=== PATIENT | male | born 1985 | race American Indian/Alaskan Native ===

== ENCOUNTER 2017-02-05 06:26 | Day surgery (SDC) | payer MEDICAID ==
[2017-02-05] MEDS ORDERED: NACL 0.9% 1000 ML 1,000 ML ONE (07:16)
[2017-02-05] MEDS ORDERED: NACL BACTERIOSTATIC INFILTRATI ONE (07:25)
[2017-02-05] MEDS ORDERED: WATER FOR IRRIG STERILE IR ONE ×2 (07:37→08:28)
[2017-02-05] MEDS ORDERED: NACL 0.9% 1000 ML 1,000 ML IV SCH (08:00)
[2017-02-05] MEDS ORDERED: WATER FOR IRRIG STERILE ONE (08:54)
[2017-02-05] MEDS ORDERED: ANCEF/STERILE WATER 2 GM/20 ML 2 GM/20 ML SYRINGE IV NR (09:00)
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
--- NOTE | 2017-02-05 09:55 | Anesthesia Day of Surgery ---
Anesthesia Day of Surgery - Day of Surgery Patient Examined: Yes Patient H&P Reviewed: Yes Patient is NPO: Yes
[2017-02-05] MEDS ORDERED: TRIPLE ANTIBIOTIC TP ONE (11:49)
--- NOTE | 2017-02-05 12:18 | History and Physical Report ---
History of Present Illness Date of examination: 02/05/17 Date of admission: 02/05/2017 Chief complaint: Feeding difficulty, gastrostomy tube malfunction/malpositioned gastrostomy tube History of present illness: Patient is a 31-year-old male with history of encephalopathy/traumatic brain injury who has a gastrostomy tube for enteral feeding and administration of medications. Apparently the gastrostomy tube malfunction and patient was taken to the emergency room. At the emergency room, a gastrostomy tube was inserted however it was uncertain whether this was properly placed and therefore the gastrostomy tube has not been used. Patient was brought to the office for evaluation. Per patient's mother she is not sure having dealt with multiple gastrostomy tubes that this was properly positioned and would like a new gastrostomy tube to be properly placed. Patient himself is nonverbal and unable to communicate. He appeared to be in some moderate distress at the time of evaluation. Past History Past Medical History: other (Traumatic brain injury status post gastrostomy tube placement.) Past Surgical History: Other (status post gastrostomy tube placement.) Social history: other (patient has a history of traumatic brain injury and is unable to provide history. Apparently lives at home with her mother and caregiver) Medications and Allergies Allergies Allergy/AdvReac Type Severity Reaction Status Date / Time No Known Allergies Allergy Verified 02/05/17 07:29 Active Meds: Active Medications Sodium Chloride (Nacl 0.9% 1000 Ml) 1,000 mls @ 50 mls/hr IV DIRECT CHRIS Last Admin: 02/05/17 08:09 Dose: 50 mls/hr Cefazolin Sodium (Ancef/Sterile Water 2 Gm/20 Ml) 2 gm in 20 mls @ 80 mls/hr IV PREOP NR PRN Reason: Protocol Stop: 02/05/17 23:59 Review of Systems ROS unobtainable: due to mental status Exam - Constitutional Vitals: Temp Pulse Resp BP Pulse Ox 99.1 F 122 H 14 135/96 98 02/05/17 07:45 02/05/17 07:45 02/05/17 07:45 02/05/17 07:45 02/05/17 07:45 General appearance: Present: no acute distress - EENT Eyes: Present: PERRL ENT: other (unable to evaluate further. Oral mucosa is dry) - Neck Neck: Present: supple - Respiratory Respiratory effort: normal Respiratory: left: CTA - Cardiovascular Rhythm: regular Heart Sounds: Present: S1 & S2. Absent: systolic murmur, diastolic murmur, rub Peripheral Pulses: within normal limits - Abdominal General gastrointestinal: Present: soft, other (gastrostomy tube in place. There is marked skin changes on the gastrostomy tube with ulceration and devitalization of surrounding skin and drainage of gastric contents.) Male genitourinary: Present: deferred - Rectal Rectal Exam: deferred - Integumentary Integumentary: Present: clear Assessment and Plan Feeding difficulty Malnutrition Oropharyngeal dysphagia Also mental status. Peristomal redness/skin changes Plan: Because it is uncertain regarding the position of the gastrostomy tube an upper endoscopy will be done to properly place a new gastrostomy tube for enteral feeding and administration of medications.
--- NOTE | 2017-02-05 12:28 | Operative Report ---
Operative Report Operative Report: Operative Report: Date of procedure: 02/05/2017 Procedure: Esophagogastroduodenoscopy with percutaneous endoscopic gastrostomy tube placement . Attending physician: Troy Villarreal MD Liquid Loader: Troy Villarreal MD Indication: Patient is an 31-year-old male who presented with a history of altered mental status poor oral intake and gastrostomy tube malfunction. Patient is moderately malnourished. An upper endoscopy is done to place a percutaneous endoscopic gastrostomy tube for enteral feeding and administration of medications. Consent: Informed consent was obtained after advising the patient's mother regarding nature of this procedure, its indications, potential benefits as well as possible complications including but not limited to bleeding perforation and adverse reaction to medication, infection as well as other cardiopulmonary complications. An informed written and verbal consent was then obtained after due opportunity was provided for questions and answers. Monitoring: Patient was monitored continuously with pulse oximetry and electrocardiographic recordings as well as blood pressure recordings. Vital signs remained stable throughout this procedure with no untoward events. Preoperative assessment: Patient was assessed immediately prior to this procedure for capacity to tolerate monitored anesthesia care and moderate sedation as well as general anesthesia. Patient's ASA classification is 3, Mallampati class is 2, Hyomental distance is 3. Instrument: [employer] video endoscope. 20 [place] percutaneous endoscopic gastrostomy tube kit Medications: Propofol given intravenously in divided doses. For details please refer to anesthesia records. Ancef 1 g given intravenously immediately prior to beginning of procedure 1% lidocaine for local infiltration of the skin. Description of procedure: Patient was placed in a supine position after achieving sedation, the endoscope was introduced into the esophagus under direct vision. It was then advanced beyond the esophagus into the stomach and then beyond the stomach into the duodenum and to the second portion of the duodenum. It was subsequently withdrawn with careful inspection of all mucosal surfaces with the following findings. Subsequently, a precise location for the placement of the percutaneous endoscopic gastrostomy tube was identified using old gastrostomy tube position. Following this, a 20 [place] percutaneous endoscopic gastrostomy tube was successfully placed using the Ponsky pull- through method. The following endoscopic findings were noted. Findings: Esophagus was normal. There was mild erythema in the gastric antrum. There was a gastric ulcer on the opposite side of the gastrostomy tube site. A 20 [place] percutaneous endoscopic gastrostomy tube was successfully placed. The duodenum was normal to the second portion. Impression: Gastric ulcer. Gastric antral erythema. Successful placement of a 20 [place] percutaneous endoscopic gastrostomy tube. Plan: The tube site is currently at 3 cm. It should be cleaned daily with Betadine and peroxide. Triple Antibiotic should be applied daily to the site with dry gauze dressing a for at least 2-3 weeks. The tube site should be carefully inspected daily for any redness or discharge. The tube should be flushed with 100 mL of water every 6 hours. The tube should also be flushed additionally after administration medications or after completing a feeding session. Tube may be used for enteral feeding after 6 hours. The tube however may be used immediately for administration of medications. If the tube is accidentally dislodged, a head of geography should be notified immediately. For the gastric ulcer, patient should be treated with omeprazole 40 mg daily through the gastrostomy tube. Duration of treatment should be for 8-12 weeks. Will check Helicobacter pylori status with a serum Helicobacter pylori antibody. After 8 weeks of treatment, a repeat endoscopy should be done to check for healing of the gastric ulcer. After 6 hours, the tube may be used for enteral feeding. The advice however and recommendation is to begin tube feeding at a slow rate of 30 mL per hour and gradually increase as may be instructed after 8 hours. Residuals from the feeding tube should be checked every 3 hours for at least 24-36 hours. If patient tolerates feeding, his feeding volume should be optimized as may advised by the dietitian to previous rate of feeding. If patient has high residuals, then caution should be used in increasing the feeding rate to avoid aspiration. The head of the bed should be kept at 30 always.
[2017-02-05] MEDS ORDERED: XYLOCAINE MPF 2% ONE (12:30)
[2017-02-05] MEDS ORDERED: DIPRIVAN 10 MG/ML IV ONE ×3 (12:31→15:56)
[2017-02-05] MEDS ORDERED: VERSED ONE (12:32)
[2017-02-05] MEDS ORDERED: SUBLIMAZE ONE (12:32)
[2017-02-05] MEDS ORDERED: XYLOCAINE 1% 20 mL ONE (12:35)
--- NOTE | 2017-02-05 13:07 | Post Anesthesia Evaluation ---
- Post Anesthesia Evaluation Patient Participated: No (does not respond) Airway Patent: Yes Stable Respiratory Function: Yes Temp > 96.8F: Yes Pain Manageable: Yes Adequeate Hydration: Yes Anesthesia Complications: No
--- NOTE | 2017-02-05 13:07 | Discharge Summary ---
Short Stay Discharge Plan Activity: other (see post-gastrostomy tube orders) Weight Bearing Status: Non-Weight Bearing Diet: other (begin gastrostomy tube feeding as ordered)
[2017-02-05 13:45] VITALS: BP 127/90
== END 2017-02-05 06:27 | disposition home or self-care (01) ==
LOC: GIO 06:26
PROVIDERS: ATTEND Internal Medicine Gastroenterology
DX: K94.23 Gastrostomy malfunction (principal); K25.9 Gastric ulcer, unspecified as acute or chronic, without hemorrhage or perforation; K31.89 Other diseases of stomach and duodenum; Y83.8 Other surgical procedures as the cause of abnormal reaction of the patient, or of later complication, without mention of misadventure at the time of the procedure
CPT/HCPCS: 43246; J2250; J2704; J3010; J7030; A6250